=== PATIENT | female | born 1955 | race African-American/Black ===

== ENCOUNTER 2019-11-07 18:22 | Inpatient (IN) | payer MEDICARE, MEDICAID ==
[~2019-11-07] VITALS: Ht 157.5 cm; Wt 56.7 kg
[2019-11-07] MEDS ORDERED: ACETAMINOPHEN 325MG TABLET PO STA (21:32)
[2019-11-07] MEDS ORDERED: NITROGLYCERIN 0.4MG TABLET SL SL ONE (21:45)
[2019-11-07 23:17] LABS: BASOPHILS % 0.6 % (0.0-2.0); EOSINOPHILS % 2.4 % (0.0-5.0); HEMATOCRIT. 34.3 % (36.0-48.0); HEMOGLOBIN. 11.4 g/dL (12.0-16.0); LYMPHOCYTES % 52.7 % (20.0-50.0); MEAN CORPUSCULAR HEMOGLOBIN 27.8 pg (28.0-32.0); MEAN CORPUSCULAR VOLUME 83.4 fL (81.0-99.0); MONOCYTES % 8.7 % (2.0-8.0); NEUTROPHILS % 35.6 % (40.0-76.0); RED BLOOD CELL COUNT 4.11 mill/uL (4.2-5.4); RED CELL DISTRIBUTION WIDTH 14.2 % (11.6-14.6)
[2019-11-07 23:21] LABS: CHLORIDE 107 mEq/L (98-107)
[2019-11-07 23:39] LABS: MEAN PLATELET VOLUME 9.5 fl (7.4-10.4); PLATELET 177 x1000/uL (130-400)
[2019-11-08] VITALS (8 sets, daily range): BP systolic 137–163; BP diastolic 60–93
[2019-11-08] MEDS ORDERED: ASPIRIN 81MG TABLET PO ONE (00:15)
[2019-11-08] MEDS ORDERED: METOCLOPRAMIDE HCL 10MG/2ML VIAL IV ONE (01:00)
[2019-11-08] MEDS ORDERED: ATEN50TA PO (04:36)
[2019-11-08] MEDS ORDERED: MIRT-91 PO ×2 (04:36→04:47)
[2019-11-08] MEDS ORDERED: DULO30CA2 PO (04:36)
[2019-11-08] MEDS ORDERED: FLUT9.9S16 BOTHNSTRLS (04:36)
[2019-11-08] MEDS ORDERED: ONDA4TAB50 PO (04:36)
[2019-11-08] MEDS ORDERED: SUCR1TAB PO (04:36)
[2019-11-08] MEDS ORDERED: PRAV10TA35 PO (04:36)
[2019-11-08] MEDS ORDERED: CALC1TAB99 PO (04:36)
[2019-11-08] MEDS ORDERED: FERR325T6 PO (04:36)
[2019-11-08] MEDS ORDERED: BUSP30TA2 PO (04:47)
[2019-11-08] MEDS ORDERED: BACL20TA PO (04:47)
[2019-11-08] MEDS ORDERED: TRAZ150T78 PO (04:47)
[2019-11-08] MEDS ORDERED: SIMV-43 PO (04:47)
[2019-11-08] MEDS ORDERED: OMEP20CA14 PO (04:47)
[2019-11-08] MEDS ORDERED: OLAN5TAB26 PO (04:47)
[2019-11-08] MEDS ORDERED: BACLOFEN 20MG TABLET PO SCH (05:15)
[2019-11-08] MEDS ORDERED: MORPHINE SULFATE 2 MG/ML CPJ (NOT FOR IM USE) IV PRN (05:30)
[2019-11-08] MEDS ORDERED: ONDANSETRON HCL 4MG TABLET PO PRN (05:30)
[2019-11-08] MEDS: OMEPRAZOLE 20MG CAPSULE EXTENDED RELEASE PO SCH (07:17)
[2019-11-08] MEDS: SUCRALFATE 1G TABLET PO SCH ×4 (07:17→20:24)
[2019-11-08] MEDS: ACETAMINOPHEN 325MG TABLET PO PRN ×2 (07:17→17:41)
[2019-11-08] MEDS: CALCIUM CARBONATE 1250MG TABLET (500MG ELEMENTAL CALCIUM) PO SCH (08:25)
[2019-11-08] MEDS: ENOXAPARIN 40MG/0.4ML SYR SUBCUT SCH (08:25)
[2019-11-08] MEDS: ASPIRIN 325MG EC TABLET PO SCH (08:25)
[2019-11-08] MEDS: BUSPIRONE HCL 10MG TABLET PO SCH ×2 (08:26→17:05)
[2019-11-08] MEDS: FERROUS SULFATE 325MG TABLET PO SCH (08:26)
[2019-11-08] MEDS: DULOXETINE HCL 20MG DR CAPSULE PO SCH (08:26)
[2019-11-08] MEDS: METOPROLOL TARTRATE 50MG TABLET PO SCH ×2 (08:27→20:24)
[2019-11-08 11:41] LABS: CLARITY URINE CLEAR (CLEAR); COLOR URINE YELLOW (YELLOW); KETONES URINE NEGATIVE (NEGATIVE); LEUKOCYTE ESTERASE URINE NEGATIVE (NEGATIVE); NITRITE URINE NEGATIVE (NEGATIVE); OCCULT BLOOD URINE NEGATIVE (NEGATIVE); PROTEIN URINE NEGATIVE (NEGATIVE); SPECIFIC GRAVITY URINE 1.005 (1.005-1.030); UROBILINOGEN URINE 0.2 E.U./dL (0.2-1.0)
[2019-11-08 12:12] LABS: *AMPHETAMINES SCREEN URINE NEGATIVE (NEGATIVE); *BARBITURATES SCREEN URINE NEGATIVE (NEGATIVE); *BENZODIAZEPINES SCREEN URINE NEGATIVE (NEGATIVE); *COCAINE SCREEN URINE NEGATIVE (NEGATIVE); METHADONE URINE SCREEN NEGATIVE (NEGATIVE); OPIATES URINE SCREEN NEGATIVE (NEGATIVE)
[2019-11-08 12:13] LABS: CANNABINOID URINE SCREEN NEGATIVE (NEGATIVE); PHENCYCLIDINE URINE SCREEN NEGATIVE (NEGATIVE)
[2019-11-08] MEDS ORDERED: TRAMADOL 50MG TABLET PO PRN (18:15)
[2019-11-08] MEDS: MIRTAZAPINE 15MG TABLET PO SCH (20:23)
[2019-11-08] MEDS: ATORVASTATIN CALCIUM 40MG TABLET PO SCH (20:24)
[2019-11-08] MEDS: OLANZAPINE 5MG TABLET PO SCH (20:24)
[2019-11-08] MEDS ORDERED: TRAZODONE HCL 50MG TABLET PO PRN (21:00)
[2019-11-09 00:17] VITALS: BP 140/69
[2019-11-09] MEDS: ACETAMINOPHEN 325MG TABLET PO PRN (01:58)
[2019-11-09 04:00] VITALS: BP 151/70
[2019-11-09] MEDS: OMEPRAZOLE 20MG CAPSULE EXTENDED RELEASE PO SCH (06:43)
[2019-11-09] MEDS: SUCRALFATE 1G TABLET PO SCH ×3 (06:43→21:57)
[2019-11-09] MEDS ORDERED: REGADENOSON 0.4 MG/5 ML IV NR (08:30)
[2019-11-09 08:34] VITALS: BP 128/53
[2019-11-09] MEDS: METOPROLOL TARTRATE 50MG TABLET PO SCH ×2 (09:17→22:02)
[2019-11-09] MEDS: FERROUS SULFATE 325MG TABLET PO SCH (09:17)
[2019-11-09] MEDS: ASPIRIN 325MG EC TABLET PO SCH (09:17)
[2019-11-09] MEDS: DULOXETINE HCL 20MG DR CAPSULE PO SCH (09:17)
[2019-11-09] MEDS: CALCIUM CARBONATE 1250MG TABLET (500MG ELEMENTAL CALCIUM) PO SCH (09:17)
[2019-11-09] MEDS: BUSPIRONE HCL 10MG TABLET PO SCH ×2 (09:17→17:36)
[2019-11-09] MEDS: ENOXAPARIN 40MG/0.4ML SYR SUBCUT SCH (09:18)
[2019-11-09 12:06] VITALS: BP 144/57
[2019-11-09 12:11] LABS: BASOPHILS % 1.1 % (0.0-2.0); EOSINOPHILS % 2.2 % (0.0-5.0); HEMATOCRIT. 36.6 % (36.0-48.0); LYMPHOCYTES % 49.4 % (20.0-50.0); MEAN CORPUSCULAR HEMOGLOBIN 27.4 pg (28.0-32.0); MEAN CORPUSCULAR VOLUME 83.1 fL (81.0-99.0); MEAN PLATELET VOLUME 9.2 fl (7.4-10.4); MONOCYTES % 10.4 % (2.0-8.0); NEUTROPHILS % 36.9 % (40.0-76.0); PLATELET 191 x1000/uL (130-400); RED CELL DISTRIBUTION WIDTH 14.3 % (11.6-14.6)
[2019-11-09 12:23] LABS: CHLORIDE 106 mEq/L (98-107)
[2019-11-09] MEDS ORDERED: IPRA3AMP9 NEB (13:11)
[2019-11-09] MEDS ORDERED: FLUT1DIS3 INH (13:11)
[2019-11-09 16:15] VITALS: BP 135/59
[2019-11-09 20:00] VITALS: BP 128/73
[2019-11-09] MEDS: MIRTAZAPINE 15MG TABLET PO SCH (21:57)
[2019-11-09] MEDS: ATORVASTATIN CALCIUM 40MG TABLET PO SCH (21:57)
[2019-11-09] MEDS: OLANZAPINE 5MG TABLET PO SCH (22:30)
[2019-11-10] VITALS: BP_SYST 117; BP_SYST 128; BP_DIAS 40; BP_DIAS 73
[2019-11-10 04:00] VITALS: BP 154/70
[2019-11-10] MEDS ORDERED: FAMOTIDINE 20MG TABLET PO SCH (07:20)
[2019-11-10 08:00] VITALS: BP 141/59
[2019-11-10] MEDS: ENOXAPARIN 40MG/0.4ML SYR SUBCUT SCH (09:00)
[2019-11-10] MEDS: METOPROLOL TARTRATE 50MG TABLET PO SCH (09:00)
[2019-11-10] MEDS: ASPIRIN 325MG EC TABLET PO SCH (09:08)
[2019-11-10] MEDS: CALCIUM CARBONATE 1250MG TABLET (500MG ELEMENTAL CALCIUM) PO SCH (09:08)
[2019-11-10] MEDS: SUCRALFATE 1G TABLET PO SCH ×2 (09:08→12:20)
[2019-11-10] MEDS: DULOXETINE HCL 20MG DR CAPSULE PO SCH (09:09)
[2019-11-10] MEDS: FERROUS SULFATE 325MG TABLET PO SCH (09:09)
[2019-11-10] MEDS: BUSPIRONE HCL 10MG TABLET PO SCH (09:10)
[2019-11-10] MEDS ORDERED: REGADENOSON 0.4 MG/5 ML IV ONE (10:50)
[2019-11-10] MEDS: ACETAMINOPHEN 325MG TABLET PO PRN (11:37)
[2019-11-10 12:00] VITALS: BP 129/61
== END 2019-11-10 13:20 | disposition home or self-care (01) | DRG 206 ==
LOC: ER 18:22 → 6WST 11-08 00:11 → EDBEDREQTM 11-08 00:26 → EDBEDREQDT 11-08 00:26 → EDBEDREQ 11-08 00:26 → ENRESERV 11-08 01:45
PROVIDERS: ADMIT Internal Medicine; ATTEND Internal Medicine
DX: M94.0 Chondrocostal junction syndrome [Tietze] (principal); E44.1 Mild protein-calorie malnutrition; E78.5 Hyperlipidemia, unspecified; D64.9 Anemia, unspecified; J44.9 Chronic obstructive pulmonary disease, unspecified; I10 Essential (primary) hypertension; F32.9 Major depressive disorder, single episode, unspecified; F17.210 Nicotine dependence, cigarettes, uncomplicated; Z68.22 Body mass index [BMI] 22.0-22.9, adult; Z86.73 Personal history of transient ischemic attack (TIA), and cerebral infarction without residual deficits; I25.2 Old myocardial infarction; Z71.6 Tobacco abuse counseling
CPT/HCPCS: 36415; 71045; 78452; 80048; 80053; 80061; 80305; 81003; 82962; 83880; 84443; 84484; 85025; 93005; 93017; 93306; 99285; A9500; J1650; J2765; J2785